=== PATIENT | male | born 1950 | race Caucasian/White ===

== ENCOUNTER 2016-08-24 18:01 | Emergency (ER) | payer OTHER | END 2016-08-24 19:55 | disposition home or self-care (01) | LOC: D.ER 18:01 | DX: I95.9 Hypotension, unspecified (principal); I25.5 Ischemic cardiomyopathy; Z77.098 Contact with and (suspected) exposure to other hazardous, chiefly nonmedicinal, chemicals; I10 Essential (primary) hypertension; E78.5 Hyperlipidemia, unspecified; R00.0 Tachycardia, unspecified ==